=== PATIENT | male | born 1950 | race Caucasian/White ===

== ENCOUNTER 2018-05-05 09:35 | Inpatient (IN) | payer OTHER ==
[2018-04-27 15:55] LABS: BASOPHILS % (AUTO) 0.5 % (0-1); EOSINOPHILS # (AUTO) 0.1 X10'3 (0-0.9); EOSINOPHILS % (AUTO) 1.1 % (0-6); LYMPHOCYTES # (AUTO) 1.2 X10'3 (1.1-4.8); LYMPHOCYTES % (AUTO) 16.9 % (21-51); MEAN CORPUSCULAR HEMOGLOBIN 30.2 PG (27.0-31.0); MEAN CORPUSCULAR HGB CONC 33.7 % (33.0-36.5); MEAN CORPUSCULAR VOLUME 89.7 FL (78-98); MEAN PLATELET VOLUME 7.9 FL (7.4-10.4); MONOCYTES # (AUTO) 0.7 X10'3 (0-0.9); MONOCYTES % (AUTO) 9.1 % (2-12); NEUTROPHILS # (AUTO) 5.4 X10'3 (1.8-7.7); NEUTROPHILS % (AUTO) 72.4 % (42-75); PRE OP HEMATOCRIT 43.5 % (42.0-52.0); PRE OP HEMOGLOBIN 14.6 g/dL (14.0-17.9); PRE OP PLATELET COUNT 194 X10'3 (140-440); RED BLOOD COUNT 4.85 X10'6 (4.70-6.10); RED CELL DISTRIBUTION WIDTH 12.6 % (11.5-14.5)
[2018-04-27 16:02] LABS: ALBUMIN 3.6 G/DL (3.4-5.0); ALKALINE PHOSPHATASE 92 IU/L (46-116); BLOOD UREA NITROGEN 19 MG/DL (7-18); BUN/CREATININE RATIO 20.7 (5.4-32.0); CALCIUM 8.6 MG/DL (8.5-10.1); CHLORIDE 105 MMOL/L (99-107); CREATININE 0.92 MG/DL (0.60-1.10); PRE OP ALT 37 U/L (30-65); PRE OP ANION GAP 9 (8-16); PRE OP AST 27 U/L (10-37); PRE OP BILIRUB, TOTAL 0.5 MG/DL (0.0-1.0); PRE OP GLUCOSE 118 MG/DL (70-104); PRE OP SODIUM 141 MMOL/L (135-145); TOTAL CARBON DIOXIDE 27.2 MMOL/L (24-32); TOTAL PROTEIN 7.2 G/DL (6.4-8.2); eGFR 82 ML/MIN
[2018-04-27 16:15] LABS: HEMOGLOBIN A1C 6.3 % (4.5-6.2)
[~2018-05-05] VITALS: Ht 177.8 cm; Wt 106.1 kg
[2018-05-05] VITALS (18 sets, daily range): BP systolic 97–130; BP diastolic 43–87
[~2018-05-05 09:35] MED LIST: ASPI-1265 PO; CHOL100046 PO; DOCUMENT DATE & TIME OF BETA-BLOCKER PO ONE; FAMC500T3 PO; FLO0.4C PO; GABA-530 PO; METF-950 PO; METO50TA7 PO; OMEG1CAP2 PO; PANT40TA4 PO; PRED2.5T4 PO; ROSU40TA21 PO; TOCI162S SQ; acetaminophen 325mg tablet PO ONE; cefazolin/dext.iso 2gm/100 ML IV ONE; famotidine 20mg tablet PO ONE; gabapentin 300mg capsule PO ONE; metoclopramide 5 mg/ml inj IV ONE; oxyCODONE SR 10mg (sust. release) tab -2 tabs (20mg) PO ONE; ringers solution, lacted 1,000 ML IV SCH; tranexamic acid inj. 1,000 MG in normal saline 100ml IV soln 90 ML IV ONE; turmeric PO; vancomycin inj 1,500 MG in normal saline 300ml IV soln IV ONE
[2018-05-05] MEDS ORDERED: vancomycin 1,000mg inj ONE (11:07)
[2018-05-05] MEDS ORDERED: ceFAZolin 1000mg inj ONE ×2 (11:08→16:38)
[2018-05-05] MEDS ORDERED: GABA-530 PO (11:27)
[2018-05-05] MEDS ORDERED: FAMC500T18 PO (11:35)
[2018-05-05] MEDS ORDERED: fentaNYL/PF 50MCG/1 ML 2ML syringe ONE (12:24)
[2018-05-05] MEDS ORDERED: MIDAZolam 5mg/5ml vial ONE (12:24)
[2018-05-05] MEDS ORDERED: morphine /PF 1mg/ml 10ml inj. ONE (12:24)
[2018-05-05] MEDS ORDERED: ROPIVAcaine inj 200 MG, ketorolac trometh inj. 15 MG, epiNEPHrine inj 0.6 MG, morphine ... IU ONE ×5 (12:30)
[2018-05-05] MEDS ORDERED: tetracaine 1% (10mg/ml) pres. free inj. ONE (13:14)
[2018-05-05] MEDS ORDERED: cloNIDine hcl/PF 100mcg/ml inj ONE (13:17)
[2018-05-05] MEDS ORDERED: glycopyrrolate 0.2mg/ml inj ONE (13:17)
[2018-05-05] MEDS ORDERED: meperidine/PF 50mg/ml syringe ONE (13:41)
[2018-05-05] MEDS ORDERED: morphine 4 MG/ML inj SYRINge IV PRN ×2 (14:15)
[2018-05-05] MEDS ORDERED: meperidine/PF 25mg/ml syringe IV PRN ×3 (14:15)
[2018-05-05] MEDS ORDERED: ondansetron/PF 4mg/2ml inj IV PRN ×3 (14:15→17:10)
[2018-05-05] MEDS ORDERED: diphenhydrAMINE 50 mg/ml inj IV PRN (14:15)
[2018-05-05] MEDS ORDERED: proCHLORperazine 10 MG/2 ml inj IV PRN (14:15)
[2018-05-05] MEDS ORDERED: naloxone 2mg/2ml inj 2 MG in normal saline 500ml IV soln 500 ML IV PRN (14:15)
[2018-05-05] MEDS ORDERED: ringers solution, lacted 1,000 ML IV SCH (14:15)
[2018-05-05] MEDS ORDERED: ondansetron/PF 4mg/2ml inj ONE (16:53)
[2018-05-05] MEDS ORDERED: acetaminophen 325mg tablet PO PRN (17:10)
[2018-05-05] MEDS ORDERED: magnesium hydroxide 30ml (MOM) UD suspension PO PRN (17:10)
[2018-05-05] MEDS ORDERED: bisacodyl 10mg suppository rectal RC PRN (17:10)
[2018-05-05] MEDS ORDERED: diphenhydrAMINE 25mg capsule PO PRN ×2 (17:10)
[2018-05-05] MEDS ORDERED: HYDROmorphone 1 mg/ml syringe IV PRN ×2 (17:10)
[2018-05-05 17:46] LABS: ISTAT ANION GAP 14 (8-12); ISTAT BUN 13 mg/dL (6-19); ISTAT CL 100 mmol/L (99-107); ISTAT CREATININE 0.7 mg/dL (0.8-1.3); ISTAT GLUCOSE 128 mg/dL (70-104); ISTAT HGB 11.9 g/dl (14.0-18.0); ISTAT Hct 35 %PCV (42-52); ISTAT IONIZED CALCIUM 1.13 mmol/L (1.03-1.32); ISTAT K 3.7 mmol/L (3.5-5.1); ISTAT NA 139 mmol/L (135-145); ISTAT TOTAL CO2 25 mmol/L (24-32); ISTAT eGFR > 90 ML/MIN; POC BUN/CREATININE RATIO 18.6 (5.4-32.0)
[2018-05-05] MEDS ORDERED: vancomycin/NS 1 GM ADD-VANTAGE 250 ML IV SCH (20:00)
[2018-05-05] MEDS ORDERED: gabapentin 300mg capsule PO SCH (21:00)
[2018-05-05] MEDS: sennosides 8.6mg tablet PO SCH (21:44)
[2018-05-05] MEDS: gabapentin 100mg capsule PO SCH (21:44)
[2018-05-05] MEDS: tamsulosin 0.4mg capsule PO SCH (21:44)
[2018-05-05] MEDS: OMEGA-3/DHA/EPA/FISH OIL 1 EACH CAPSULE.DR PO SCH (21:45)
[2018-05-05] MEDS: acetaminophen 325mg tablet PO SCH (21:45)
[2018-05-05] MEDS ORDERED: tranexamic acid inj. 1,000 MG in normal saline 100ml IV soln 100 ML IV ONE (22:00)
[2018-05-05] MEDS ORDERED: TOCILIZUMAB SQ SCH (22:40)
[2018-05-06] MEDS: ceFAZolin 1GM/D5W- ADD-VANTAGE 50 ML IV SCH ×2 (00:06→07:45)
[2018-05-06] MEDS: potassium cl 20mEq in 1/2 NS 1,000 ML IV SCH ×4 (00:08→17:08)
[2018-05-06] MEDS: metoprolol succinate 25mg (24-HOUR) SR. Tablet PO SCH ×2 (00:19→21:18)
[2018-05-06] MEDS: aspirin 81mg tab.chew PO SCH ×2 (00:54→21:17)
[2018-05-06] MEDS: metFORMIN 500mg tablet PO SCH ×3 (00:54→17:44)
[2018-05-06] MEDS: atorvastatin 20mg tablet PO SCH ×2 (00:56→21:17)
[2018-05-06] MEDS: acetaminophen 325mg tablet PO SCH ×4 (02:00→19:49)
[2018-05-06 06:00] VITALS: BP 93/58
[2018-05-06 06:14] LABS: BASOPHILS % (AUTO) 0.3 % (0-1); EOSINOPHILS # (AUTO) 0.1 X10'3 (0-0.9); EOSINOPHILS % (AUTO) 1.6 % (0-6); HEMATOCRIT 32.3 % (42.0-52.0); HEMOGLOBIN 10.8 g/dl (14.0-17.9); LYMPHOCYTES # (AUTO) 1.2 X10'3 (1.1-4.8); LYMPHOCYTES % (AUTO) 19.7 % (21-51); MEAN CORPUSCULAR HEMOGLOBIN 30.1 PG (27.0-31.0); MEAN CORPUSCULAR HGB CONC 33.5 % (33.0-36.5); MEAN CORPUSCULAR VOLUME 90.1 FL (78-98); MEAN PLATELET VOLUME 7.7 FL (7.4-10.4); MONOCYTES # (AUTO) 0.9 X10'3 (0-0.9); MONOCYTES % (AUTO) 14.9 % (2-12); NEUTROPHILS # (AUTO) 3.9 X10'3 (1.8-7.7); NEUTROPHILS % (AUTO) 63.5 % (42-75); PLATELET COUNT 156 X10'3 (140-440); RED BLOOD COUNT 3.59 X10'6 (4.70-6.10); RED CELL DISTRIBUTION WIDTH 13.5 % (11.5-14.5); WHITE BLOOD COUNT 6.2 X10'3 (4.5-11.0)
[2018-05-06 06:19] LABS: ANION GAP 7 (8-16); CHLORIDE 103 MMOL/L (99-107); POTASSIUM 3.6 MMOL/L (3.5-5.1); SODIUM 138 MMOL/L (135-145); TOTAL CARBON DIOXIDE 27.8 MMOL/L (24-32)
[2018-05-06 07:01] VITALS: BP 111/69
[2018-05-06] MEDS: gabapentin 100mg capsule PO SCH ×2 (07:45→19:49)
[2018-05-06] MEDS: oxyCODONE IR 5mg (immed. release) tablet PO PRN ×4 (07:45→21:19)
[2018-05-06] MEDS: enoxaparin 40mg/0.4ml syringe SQ SCH (07:45)
[2018-05-06] MEDS: pantoprazole 40mg Tablet.DR PO SCH (07:45)
[2018-05-06] MEDS: vitamin D (cholecalciferol) 1,000 unit tablet PO SCH (07:45)
[2018-05-06] MEDS: predniSONE 5mg tablet PO SCH (07:45)
[2018-05-06] MEDS ORDERED: gabapentin 100mg capsule PO SCH (08:00)
[2018-05-06] MEDS ORDERED: TURMERIC 1000 MG PO SCH (08:00)
[2018-05-06] MEDS ORDERED: non-formulary drug (Rosuvastatin Calcium 1 TAB) PO SCH (08:00)
[2018-05-06] MEDS ORDERED: metFORMIN 500mg tablet PO SCH (08:00)
[2018-05-06] MEDS ORDERED: aspirin 81mg tab.chew PO SCH (08:00)
[2018-05-06] MEDS ORDERED: vitamin D (cholecalciferol) 1,000 unit tablet PO SCH (08:00)
[2018-05-06] MEDS ORDERED: FAMCICLOVIR PO SCH (08:00)
[2018-05-06] MEDS ORDERED: PREDNISONE 7.5 MG PO SCH (08:00)
[2018-05-06] MEDS ORDERED: non-formulary drug (Omega-3 Fatty Acids/Fish Oil (Fish Oil 1,000 mg Capsule) 1 CAP) PO SCH (08:00)
[2018-05-06] MEDS ORDERED: non-formulary drug (Metoprolol Succinate* (Toprol Xl*) 1 TAB) PO SCH (08:00)
[2018-05-06] MEDS ORDERED: tamsulosin 0.4mg capsule PO SCH (08:00)
[2018-05-06] MEDS ORDERED: pantoprazole 40mg Tablet.DR PO SCH (08:00)
[2018-05-06 10:00] VITALS: BP 105/52
[2018-05-06] MEDS: [UNRECOGNIZED DRUG - REMARK] PO NR (10:00)
[2018-05-06] MEDS: OMEGA-3/DHA/EPA/FISH OIL 1 EACH CAPSULE.DR PO SCH ×2 (10:13→19:49)
[2018-05-06 17:00] VITALS: BP 120/58
[2018-05-06] MEDS: celeCOXIB 100mg capsule PO SCH (19:49)
[2018-05-06] MEDS: tamsulosin 0.4mg capsule PO SCH (21:15)
[2018-05-06] MEDS: sennosides 8.6mg tablet PO SCH (21:17)
[2018-05-06 21:20] VITALS: BP 115/57
[2018-05-06 22:00] VITALS: BP 137/46
[2018-05-07] MEDS: acetaminophen 325mg tablet PO SCH ×3 (02:48→14:15)
[2018-05-07] MEDS: oxyCODONE IR 5mg (immed. release) tablet PO PRN ×3 (05:19→14:15)
[2018-05-07 06:00] VITALS: BP 121/54
[2018-05-07] MEDS: pantoprazole 40mg Tablet.DR PO SCH (07:43)
[2018-05-07] MEDS: metFORMIN 500mg tablet PO SCH ×2 (07:43→17:34)
[2018-05-07] MEDS: celeCOXIB 100mg capsule PO SCH ×2 (07:43→20:23)
[2018-05-07] MEDS: OMEGA-3/DHA/EPA/FISH OIL 1 EACH CAPSULE.DR PO SCH ×2 (07:43→20:23)
[2018-05-07] MEDS: gabapentin 100mg capsule PO SCH ×2 (07:44→20:23)
[2018-05-07] MEDS: predniSONE 5mg tablet PO SCH (07:44)
[2018-05-07] MEDS: vitamin D (cholecalciferol) 1,000 unit tablet PO SCH (07:45)
[2018-05-07] MEDS: enoxaparin 40mg/0.4ml syringe SQ SCH (07:45)
[2018-05-07] MEDS: aspirin 81mg tab.chew PO SCH (07:45)
[2018-05-07 08:36] LABS: BASOPHILS # (AUTO) 0.1 X10'3 (0-0.2); BASOPHILS % (AUTO) 0.9 % (0-1); EOSINOPHILS # (AUTO) 0.1 X10'3 (0-0.9); EOSINOPHILS % (AUTO) 1.2 % (0-6); HEMATOCRIT 34.5 % (42.0-52.0); HEMOGLOBIN 11.5 g/dl (14.0-17.9); LYMPHOCYTES # (AUTO) 1.3 X10'3 (1.1-4.8); LYMPHOCYTES % (AUTO) 15.1 % (21-51); MEAN CORPUSCULAR HEMOGLOBIN 30.2 PG (27.0-31.0); MEAN CORPUSCULAR HGB CONC 33.2 % (33.0-36.5); MEAN CORPUSCULAR VOLUME 90.9 FL (78-98); MEAN PLATELET VOLUME 7.7 FL (7.4-10.4); MONOCYTES # (AUTO) 1.1 X10'3 (0-0.9); MONOCYTES % (AUTO) 13.1 % (2-12); NEUTROPHILS # (AUTO) 5.8 X10'3 (1.8-7.7); NEUTROPHILS % (AUTO) 69.7 % (42-75); PLATELET COUNT 181 X10'3 (140-440); RED CELL DISTRIBUTION WIDTH 13.5 % (11.5-14.5); WHITE BLOOD COUNT 8.3 X10'3 (4.5-11.0)
[2018-05-07 10:00] VITALS: BP 114/54
[2018-05-07] MEDS: [UNRECOGNIZED DRUG - REMARK] PO NR (10:00)
[2018-05-07] MEDS ORDERED: acetaminophen 325mg tablet PO PRN (17:10)
[2018-05-07 18:00] VITALS: BP 114/57
[2018-05-07] MEDS: sennosides 8.6mg tablet PO SCH (20:23)
[2018-05-07] MEDS: metoprolol succinate 25mg (24-HOUR) SR. Tablet PO SCH (20:23)
[2018-05-07] MEDS: atorvastatin 20mg tablet PO SCH (20:23)
[2018-05-07] MEDS: tamsulosin 0.4mg capsule PO SCH (20:23)
[2018-05-07 22:00] VITALS: BP 121/60
[2018-05-08] MEDS: oxyCODONE IR 5mg (immed. release) tablet PO PRN ×2 (05:24→09:52)
[2018-05-08 06:00] VITALS: BP 118/50
[2018-05-08 06:33] LABS: BASOPHILS % (AUTO) 0.2 % (0-1); EOSINOPHILS # (AUTO) 0.2 X10'3 (0-0.9); EOSINOPHILS % (AUTO) 2.3 % (0-6); HEMATOCRIT 32.8 % (42.0-52.0); LYMPHOCYTES # (AUTO) 1.5 X10'3 (1.1-4.8); LYMPHOCYTES % (AUTO) 19.2 % (21-51); MEAN CORPUSCULAR HEMOGLOBIN 30.1 PG (27.0-31.0); MEAN CORPUSCULAR HGB CONC 33.5 % (33.0-36.5); MEAN CORPUSCULAR VOLUME 89.9 FL (78-98); MONOCYTES # (AUTO) 1.1 X10'3 (0-0.9); MONOCYTES % (AUTO) 14.4 % (2-12); NEUTROPHILS # (AUTO) 4.9 X10'3 (1.8-7.7); NEUTROPHILS % (AUTO) 63.9 % (42-75); PLATELET COUNT 183 X10'3 (140-440); RED BLOOD COUNT 3.65 X10'6 (4.70-6.10); RED CELL DISTRIBUTION WIDTH 13.8 % (11.5-14.5); WHITE BLOOD COUNT 7.6 X10'3 (4.5-11.0)
[2018-05-08] MEDS: celeCOXIB 100mg capsule PO SCH (08:20)
[2018-05-08] MEDS: metFORMIN 500mg tablet PO SCH (08:20)
[2018-05-08] MEDS: OMEGA-3/DHA/EPA/FISH OIL 1 EACH CAPSULE.DR PO SCH (08:20)
[2018-05-08] MEDS: pantoprazole 40mg Tablet.DR PO SCH (08:20)
[2018-05-08] MEDS: gabapentin 100mg capsule PO SCH (08:20)
[2018-05-08] MEDS: predniSONE 5mg tablet PO SCH (08:20)
[2018-05-08] MEDS: enoxaparin 40mg/0.4ml syringe SQ SCH (08:20)
[2018-05-08] MEDS: vitamin D (cholecalciferol) 1,000 unit tablet PO SCH (08:21)
[2018-05-08 10:00] VITALS: BP 109/55
[2018-05-08] MEDS: [UNRECOGNIZED DRUG - REMARK] PO NR (10:32)
[2018-05-12] MEDS ORDERED: TOCILIZUMAB 162 MG/0.9 ML SQ SCH (08:00)
== END 2018-05-08 11:50 | disposition home or self-care (01) | DRG 470 ==
LOC: PAS IN 09:35 → EDSTATUS 15:15 → ORTHO 4S 19:11
PROVIDERS: ADMIT Orthopaedic Surgery; ATTEND Orthopaedic Surgery
PROC: 8E0Y0CZ Robotic Assisted Procedure of Lower Extremity, Open Approach (ICD-10-PCS; 2018-05-05)
PROC: 0SRC069 Replacement of Right Knee Joint with Oxidized Zirconium on Polyethylene Synthetic Substitute, Cemented, Open Approach (ICD-10-PCS; principal; 2018-05-05 13:07)
PROC: 5A09357 Assistance with Respiratory Ventilation, Less than 24 Consecutive Hours, Continuous Positive Airway Pressure (ICD-10-PCS; 2018-05-06)
PROC: 5A09357 Assistance with Respiratory Ventilation, Less than 24 Consecutive Hours, Continuous Positive Airway Pressure (ICD-10-PCS; 2018-05-07)
DX: M17.11 Unilateral primary osteoarthritis, right knee (principal); D62 Acute posthemorrhagic anemia; E11.9 Type 2 diabetes mellitus without complications; E78.5 Hyperlipidemia, unspecified; G47.30 Sleep apnea, unspecified; I10 Essential (primary) hypertension; K21.9 Gastro-esophageal reflux disease without esophagitis; N40.0 Benign prostatic hyperplasia without lower urinary tract symptoms; I25.2 Old myocardial infarction; Z88.8 Allergy status to other drugs, medicaments and biological substances
CPT/HCPCS: 36415; 80047; 80051; 80053; 82948; 83036; 85025; 87070; 97110; 97116; 97161; 97530; A6455; A7000; C1713; C1758; C1776; J0690; J0735; J1650; J2175; J2250; J2274; J2405; J2765; J2795; J3010; J3370; J3490; J7030; J7120; J7512

== ENCOUNTER 2019-03-09 05:38 | Inpatient (IN) | payer MEDICARE, BC ==
[2019-03-01 16:11] LABS: BASOPHILS % (AUTO) 0.5 % (0-1); EOSINOPHILS # (AUTO) 0.1 X10'3 (0-0.9); EOSINOPHILS % (AUTO) 1.5 % (0-6); LYMPHOCYTES # (AUTO) 2.2 X10'3 (1.1-4.8); LYMPHOCYTES % (AUTO) 29.8 % (21-51); MEAN CORPUSCULAR HEMOGLOBIN 30.2 PG (27.0-31.0); MEAN CORPUSCULAR HGB CONC 33.9 g/dL (33.0-36.5); MEAN CORPUSCULAR VOLUME 89.2 FL (78-98); MEAN PLATELET VOLUME 7.3 FL (7.4-10.4); MONOCYTES % (AUTO) 13.3 % (2-12); NEUTROPHILS % (AUTO) 54.9 % (42-75); PRE OP HEMATOCRIT 44.5 % (42.0-52.0); PRE OP HEMOGLOBIN 15.1 g/dL (14.0-17.9); PRE OP PLATELET COUNT 204 X10'3 (140-440); RED BLOOD COUNT 4.98 X10'6 (4.70-6.10); RED CELL DISTRIBUTION WIDTH 14.4 % (11.5-14.5)
[2019-03-01 16:26] LABS: ALBUMIN 3.9 G/DL (3.4-5.0); ALKALINE PHOSPHATASE 86 IU/L (46-116); BLOOD UREA NITROGEN 23 MG/DL (7-18); BUN/CREATININE RATIO 22.3 (5.4-32.0); CALCIUM 9.1 MG/DL (8.5-10.1); CHLORIDE 105 MMOL/L (99-107); CREATININE 1.03 MG/DL (0.60-1.10); PRE OP ALT 33 U/L (30-65); PRE OP ANION GAP 7 (8-16); PRE OP AST 26 U/L (10-37); PRE OP BILIRUB, TOTAL 0.7 MG/DL (0.0-1.0); PRE OP GLUCOSE 102 MG/DL (70-104); PRE OP SODIUM 140 MMOL/L (135-145); TOTAL CARBON DIOXIDE 27.8 MMOL/L (24-32); TOTAL PROTEIN 7.8 G/DL (6.4-8.2); eGFR 72 ML/MIN
[~2019-03-09] VITALS: Ht 185.4 cm; Wt 104.0 kg
[2019-03-09] VITALS (18 sets, daily range): BP systolic 101–130; BP diastolic 52–71
[~2019-03-09 05:38] MED LIST changes: +ABAT125S SQ; +FAMC500T18 PO; -FAMC500T3 PO; -PRED2.5T4 PO; +PRED5TAB PO; -ROSU40TA21 PO; +ROSU40TA22 PO; -TOCI162S SQ; +TRAM50TA2 PO; +TUMERIC PO; +UBID100C16 PO; +tranexamic acid inj. 1,000 MG in normal saline 100 ML IV ONE; -tranexamic acid inj. 1,000 MG in normal saline 100ml IV soln 90 ML IV ONE; -turmeric PO
[2019-03-09] MEDS ORDERED: Thrombin (Bovine) 5,000 unit vial TP ONE (06:52)
[2019-03-09] MEDS ORDERED: ketorolac trometh. 30mg/ml inj. ONE (06:57)
[2019-03-09] MEDS ORDERED: epiNEPHrine 1 mg/ml inj ONE (06:57)
[2019-03-09] MEDS ORDERED: ROPIVAcaine 0.5% (5mg/ml) 30ml vial ONE ×3 (06:57→09:38)
[2019-03-09] MEDS ORDERED: vancomycin 1,000mg inj ONE (07:03)
[2019-03-09] MEDS ORDERED: tetracaine 1% (10mg/ml) pres. free inj. ONE (07:20)
[2019-03-09] MEDS ORDERED: morphine /PF 1mg/ml 10ml inj. ONE (07:22)
[2019-03-09] MEDS ORDERED: fentaNYL/PF 50MCG/1 ML 2ML syringe ONE (07:22)
[2019-03-09] MEDS ORDERED: MIDAZolam 5mg/5ml vial ONE (07:22)
[2019-03-09] MEDS ORDERED: morphine 10mg/ml inj. ONE (08:10)
[2019-03-09] MEDS ORDERED: ringers solution, lacted 1,000 ML IV SCH (08:27)
[2019-03-09] MEDS ORDERED: naloxone 2mg/2ml inj 2 MG in normal saline 500ml IV soln 500 ML IV PRN (08:27)
[2019-03-09] MEDS ORDERED: calcium chloride 100 MG/1 ML inj IV ONE (08:29)
[2019-03-09] MEDS ORDERED: proCHLORperazine 10 MG/2 ml inj IV PRN (08:30)
[2019-03-09] MEDS ORDERED: morphine 4 MG/ML inj SYRINge IV PRN ×2 (08:30)
[2019-03-09] MEDS ORDERED: ondansetron/PF 4mg/2ml inj IV PRN ×3 (08:30→09:35)
[2019-03-09] MEDS ORDERED: diphenhydrAMINE 50 mg/ml inj IV PRN (08:30)
[2019-03-09] MEDS ORDERED: meperidine/PF 25mg/ml syringe IV PRN ×3 (08:30)
[2019-03-09] MEDS: ceFAZolin 1000mg inj ONE ×2 (09:07→09:08)
[2019-03-09] MEDS ORDERED: LIDOcaine 1%/PF 5ML 10 MG/ML VIAL ONE (09:33)
[2019-03-09] MEDS ORDERED: propofol inj 40 ML IV ONE (09:33)
[2019-03-09] MEDS ORDERED: oxyCODONE IR 5mg (immed. release) tablet PO PRN ×2 (09:35)
[2019-03-09] MEDS ORDERED: diphenhydrAMINE 25mg capsule PO PRN ×2 (09:35)
[2019-03-09] MEDS ORDERED: acetaminophen 325mg tablet PO PRN (09:35)
[2019-03-09] MEDS ORDERED: HYDROmorphone 1 mg/ml syringe IV PRN (09:35)
[2019-03-09] MEDS ORDERED: bisacodyl 10mg suppository rectal RC PRN (09:35)
[2019-03-09] MEDS ORDERED: magnesium hydroxide 30ml (MOM) UD suspension PO PRN (09:35)
[2019-03-09] MEDS ORDERED: HYDROmorphone inj. 0.5 MG/0.5 ML DISP.SYRIN IV PRN (09:35)
--- NOTE | 2019-03-09 10:04 | NUR ---
Received from OR via BED, accompanied by Anesthesiologist DR ORTIZ and report given by Anesthesiologist. PT DROWSY, DENIES PAIN, LEFT LEG W/DRSG, LEG WRAP, CDI, ICE PACK AND SOPHY DRAIN W/GREEN LIGHT ILLUMINATION. Addendum: 03/09/19 at 1024 by Missy Roman RN Amended: Links added.
[2019-03-09] MEDS ORDERED: traMADol 50MG tablet PO PRN (10:25)
[2019-03-09] MEDS: ROPIVAcaine 0.2%/PF PAIN PUMP 550 ML IJ SCH (10:36)
--- NOTE | 2019-03-09 10:52 | NUR ---
received report from shaimr wu in recovery
--- NOTE | 2019-03-09 11:24 | NUR ---
Report called to receiving nurse. Transferred via BED, 1 BAG OF PERSONAL Belongings, CPAP SENT W/PT TO ROOM 4024B, NURSES AIDE AT BEDSIDE TO RECEIVE PT, PRESENT, CALL LIGHT GIVEN, BLL, SIDE RAILS UP X 2. Special Issues communicated to receiving nurse. YES. Addendum: 03/09/19 at 1141 by Missy Roman RN Amended: Links added.
--- NOTE | 2019-03-09 11:30 | NUR ---
pt arrived to floor awake and in ortho bed
[2019-03-09] MEDS ORDERED: ABATACEPT 125 MG PO SCH (12:05)
[2019-03-09] MEDS: gabapentin 300mg capsule PO SCH ×2 (12:45→20:25)
[2019-03-09] MEDS: gabapentin 100mg capsule PO SCH ×2 (12:45→20:26)
[2019-03-09] MEDS ORDERED: tranexamic acid inj. 1,000 MG in normal saline 100ml IV soln 100 ML IV ONE (13:00)
[2019-03-09] MEDS: acetaminophen 325mg tablet PO SCH ×2 (13:10→20:27)
--- NOTE | 2019-03-09 13:10 | NUR ---
scanner on computer not working, checked meds prior to admin, continue to monitor
[2019-03-09] MEDS: potassium cl 20mEq in 1/2 NS 1,000 ML IV SCH ×2 (15:39→17:33)
[2019-03-09] MEDS: ceFAZolin 1GM/D5W- ADD-VANTAGE 50 ML IV SCH ×2 (15:41→23:50)
--- NOTE | 2019-03-09 18:19 | NUR ---
gave report to shamir tovar
--- NOTE | 2019-03-09 18:37 | NUR ---
Patient in room ORTHO 4024. I have received report from BRENDAN Beckwith and had the opportunity to ask questions and assume patient care.
[2019-03-09] MEDS ORDERED: vancomycin/NS 1 GM ADD-VANTAGE 250 ML IV SCH (20:00)
[2019-03-09] MEDS: omega-3 acid ethyl esters 1GM capsule PO SCH (20:25)
[2019-03-09] MEDS: metFORMIN 500mg tablet PO SCH (20:40)
[2019-03-09] MEDS ORDERED: atorvastatin 20mg tablet PO SCH (21:00)
[2019-03-09] MEDS ORDERED: sennosides 8.6mg tablet PO SCH (21:00)
[2019-03-09] MEDS ORDERED: metoprolol succinate 25mg (24-HOUR) SR. Tablet PO SCH (21:00)
[2019-03-10 02:00] VITALS: BP 103/52
[2019-03-10] MEDS: potassium cl 20mEq in 1/2 NS 1,000 ML IV SCH ×2 (02:14→09:33)
[2019-03-10] MEDS: acetaminophen 325mg tablet PO SCH ×2 (02:15→09:11)
[2019-03-10] MEDS: ROPIVAcaine 0.2%/PF PAIN PUMP 550 ML IJ SCH (02:16)
[2019-03-10 06:00] VITALS: BP 107/53
--- NOTE | 2019-03-10 06:41 | NUR ---
Problems reprioritized. Patient report given, questions answered & plan of care reviewed with BRENDAN Merino.
[2019-03-10 06:44] LABS: BASOPHILS % (AUTO) 0.3 % (0-1); EOSINOPHILS # (AUTO) 0.2 X10'3 (0-0.9); EOSINOPHILS % (AUTO) 2.6 % (0-6); HEMATOCRIT 35.6 % (42.0-52.0); HEMOGLOBIN 12.1 g/dl (14.0-17.9); LYMPHOCYTES # (AUTO) 1.6 X10'3 (1.1-4.8); LYMPHOCYTES % (AUTO) 24.2 % (21-51); MEAN CORPUSCULAR HEMOGLOBIN 30.3 PG (27.0-31.0); MEAN CORPUSCULAR HGB CONC 33.9 g/dL (33.0-36.5); MEAN CORPUSCULAR VOLUME 89.4 FL (78-98); MEAN PLATELET VOLUME 7.1 FL (7.4-10.4); MONOCYTES # (AUTO) 1.1 X10'3 (0-0.9); NEUTROPHILS # (AUTO) 3.8 X10'3 (1.8-7.7); NEUTROPHILS % (AUTO) 56.9 % (42-75); PLATELET COUNT 156 X10'3 (140-440); RED BLOOD COUNT 3.98 X10'6 (4.70-6.10); RED CELL DISTRIBUTION WIDTH 14.2 % (11.5-14.5); WHITE BLOOD COUNT 6.6 X10'3 (4.5-11.0)
[2019-03-10 06:55] LABS: ANION GAP 6 (8-16); CHLORIDE 106 MMOL/L (99-107); POTASSIUM 3.5 MMOL/L (3.5-5.1); SODIUM 140 MMOL/L (135-145); TOTAL CARBON DIOXIDE 27.8 MMOL/L (24-32)
[2019-03-10] MEDS ORDERED: enoxaparin 40mg/0.4ml syringe SQ SCH (08:00)
[2019-03-10] MEDS ORDERED: vitamin D (cholecalciferol) 1,000 unit tablet PO SCH (08:00)
[2019-03-10] MEDS ORDERED: tamsulosin 0.4mg capsule PO SCH (08:00)
[2019-03-10] MEDS ORDERED: pantoprazole 40mg Tablet.DR PO SCH (08:00)
[2019-03-10] MEDS: gabapentin 300mg capsule PO SCH ×2 (08:00→09:13)
[2019-03-10] MEDS ORDERED: predniSONE 5mg tablet PO SCH (08:00)
[2019-03-10] MEDS ORDERED: non-formulary drug (Ubidecarenone (Coq-10) 300 MG) PO SCH (08:00)
[2019-03-10 08:17] LABS: PLATELET ESTIMATE NORMAL; TOTAL CELLS COUNTED 100
[2019-03-10] MEDS ORDERED: HYDROcodone/acetaminophen 10/325mg tab PO PRN ×2 (09:10)
[2019-03-10] MEDS ORDERED: metoclopramide 5 mg/ml inj IV PRN (09:10)
[2019-03-10] MEDS: metFORMIN 500mg tablet PO SCH (09:12)
[2019-03-10] MEDS: gabapentin 100mg capsule PO SCH ×2 (09:13→13:00)
[2019-03-10] MEDS: omega-3 acid ethyl esters 1GM capsule PO SCH (09:13)
--- NOTE | 2019-03-10 09:20 | NUR ---
Pt takes gabapentin 100 mg tid at [facility]. Will confirm the extra 300 mg tid dose maria luz Mjaano
[2019-03-10 10:00] VITALS: BP 119/68
--- NOTE | 2019-03-10 10:00 | NUR ---
anti emetic was given this a.m due to nausea, late tray was ordered, will reassess intake when finished Addendum: 03/10/19 at 1118 by Kaitlin Turner RN Amended: Links added.
[2019-03-10] MEDS ORDERED: HYDR-3972 PO (10:17)
--- NOTE | 2019-03-10 11:41 | NUR ---
Joint/DM consults: A1C <7 and not appropriate for DM ed at this time. Pt s/p L knee surgery PO 100% regular dinner last night and decreased to 25% breakfast today noted to have nausea. Ensure pudding BIDBD added to meals for additional protein needs. Labs and GLU WNL on regular diet. Will continue to monitor for additional protein needs post-op. Addendum: 03/10/19 at [address] Amended: Links added.
[2019-03-10] MEDS ORDERED: celeCOXIB 100mg capsule PO SCH (20:00)
[2019-03-11] MEDS ORDERED: acetaminophen 325mg tablet PO PRN (09:35)
== END 2019-03-10 16:42 | disposition home or self-care (01) | DRG 470 ==
LOC: PAS IN 05:38 → EDSTATUS 07:30 → ORTHO 4S 11:30
PROVIDERS: ADMIT Orthopaedic Surgery; ATTEND Orthopaedic Surgery
PROC: 3E0T3BZ Introduction of Anesthetic Agent into Peripheral Nerves and Plexi, Percutaneous Approach (ICD-10-PCS; 2019-03-09)
PROC: 8E0YXCZ Robotic Assisted Procedure of Lower Extremity (ICD-10-PCS; 2019-03-09)
PROC: 5A09357 Assistance with Respiratory Ventilation, Less than 24 Consecutive Hours, Continuous Positive Airway Pressure (ICD-10-PCS; 2019-03-09)
PROC: 0SRD069 Replacement of Left Knee Joint with Oxidized Zirconium on Polyethylene Synthetic Substitute, Cemented, Open Approach (ICD-10-PCS; principal; 2019-03-09 07:23)
DX: M17.12 Unilateral primary osteoarthritis, left knee (principal); D62 Acute posthemorrhagic anemia; E11.42 Type 2 diabetes mellitus with diabetic polyneuropathy; G47.30 Sleep apnea, unspecified; I10 Essential (primary) hypertension; E78.5 Hyperlipidemia, unspecified; M06.9 Rheumatoid arthritis, unspecified; I25.10 Atherosclerotic heart disease of native coronary artery without angina pectoris; Z96.651 Presence of right artificial knee joint; Z79.84 Long term (current) use of oral hypoglycemic drugs; K21.9 Gastro-esophageal reflux disease without esophagitis; N40.0 Benign prostatic hyperplasia without lower urinary tract symptoms; Z88.8 Allergy status to other drugs, medicaments and biological substances; Z98.61 Coronary angioplasty status; Z79.899 Other long term (current) drug therapy; Z79.82 Long term (current) use of aspirin
CPT/HCPCS: 36415; 80051; 80053; 82948; 83036; 85025; 87081; 93005; 97110; 97116; 97162; 97530; A4215; A6454; A7000; C1713; C1758; C1776; G0378; J0171; J0690; J1650; J1885; J2250; J2270; J2310; J2405; J2704; J2765; J2795; J3010; J3370; J3480; J7040; J7120; J7512

== ENCOUNTER 2021-03-22 15:18 | Inpatient (IN) | payer MEDICARE, BC ==
[~2021-03-22] VITALS: Ht 182.9 cm; Wt 100.0 kg
[~2021-03-22 15:18] MED LIST changes: -DOCUMENT DATE & TIME OF BETA-BLOCKER PO ONE; -FAMC500T18 PO; +FAMC500T23 PO; +HYDR-3972 PO; -PANT40TA4 PO; +PANT40TA54 PO; -acetaminophen 325mg tablet PO ONE; -cefazolin/dext.iso 2gm/100 ML IV ONE; -famotidine 20mg tablet PO ONE; -gabapentin 300mg capsule PO ONE; -metoclopramide 5 mg/ml inj IV ONE; -oxyCODONE SR 10mg (sust. release) tab -2 tabs (20mg) PO ONE; -ringers solution, lacted 1,000 ML IV SCH; -tranexamic acid inj. 1,000 MG in normal saline 100 ML IV ONE; -vancomycin inj 1,500 MG in normal saline 300ml IV soln IV ONE
[2021-03-22] MEDS ORDERED: normal saline 1000ml 1,000 ML IV ONE (15:45)
[2021-03-22] MEDS ORDERED: acetaminophen 325mg tablet PO ONE (15:55)
--- NOTE | 2021-03-22 16:02 | NUR ---
PTS [phone]
[2021-03-22 16:17] LABS: BASOPHILS % (AUTO) 0.3 % (0-1); EOSINOPHILS % (AUTO) 0.1 % (0-6); HEMATOCRIT 40.9 % (42.0-52.0); HEMOGLOBIN 13.7 g/dl (14.0-17.9); LYMPHOCYTES # (AUTO) 0.7 X10'3 (1.1-4.8); MEAN CORPUSCULAR HEMOGLOBIN 31.9 PG (27.0-31.0); MEAN CORPUSCULAR HGB CONC 33.6 g/dL (33.0-36.5); MEAN CORPUSCULAR VOLUME 95.1 FL (78-98); MEAN PLATELET VOLUME 7.6 FL (7.4-10.4); MONOCYTES # (AUTO) 0.7 X10'3 (0-0.9); MONOCYTES % (AUTO) 13.3 % (2-12); NEUTROPHILS # (AUTO) 3.9 X10'3 (1.8-7.7); NEUTROPHILS % (AUTO) 72.3 % (42-75); PLATELET COUNT 230 X10'3 (140-440); RED CELL DISTRIBUTION WIDTH 16.1 % (11.5-14.5); WHITE BLOOD COUNT 5.3 X10'3 (4.5-11.0)
[2021-03-22 16:30] LABS: D-DIMER 1.24 MG/L FEU (0-0.50)
[2021-03-22 16:49] LABS: ALANINE AMINOTRANSFERASE 64 U/L (12-78); ALBUMIN/GLOBULIN RATIO 0.6 (1.1-1.5); ALKALINE PHOSPHATASE 108 IU/L (46-116); ANION GAP 11 (8-16); ASPARTATE AMINO TRANSFERASE 90 U/L (10-37); BILIRUBIN,TOTAL 0.7 MG/DL (0.1-1.0); BLOOD UREA NITROGEN 26 MG/DL (7-18); BUN/CREATININE RATIO 17.1 (5.4-32.0); C-REACTIVE PROTEIN 10.32 MG/DL (0.0-0.5); CALCIUM 8.2 MG/DL (8.5-10.1); CHLORIDE 101 MMOL/L (99-107); CREATININE 1.52 MG/DL (0.60-1.10); GLUCOSE 122 MG/DL (70-104); LACTATE DEHYDROGENASE 831 U/L (85-227); MAGNESIUM 2.4 MG/DL (1.5-2.4); SODIUM 136 MMOL/L (135-145); TOTAL CARBON DIOXIDE 24.3 MMOL/L (24-32); TOTAL PROTEIN 7.9 G/DL (6.4-8.2); eGFR 46 ML/MIN
[2021-03-22] MEDS ORDERED: REMDESIVIR INJ 200 MG in normal saline 100ml IV soln 60 ML IV ONE (17:40)
[2021-03-22] MEDS ORDERED: methylPREDNISolone sod succ 125mg/2ml vial IV ONE (17:45)
[2021-03-22] MEDS ORDERED: TRAM50TA2 PO (18:10)
[2021-03-22] MEDS ORDERED: FLUT1DIS INH (18:10)
[2021-03-22] MEDS ORDERED: GABA300C PO (18:10)
[2021-03-22] MEDS ORDERED: FOLI0.4T14 PO (18:10)
[2021-03-22] MEDS ORDERED: TURM500C4 PO (18:10)
[2021-03-22] MEDS ORDERED: CYAN-51 PO (18:10)
[2021-03-22] MEDS ORDERED: BARI2TAB PO (18:10)
[2021-03-22] MEDS ORDERED: SILD100T PO (18:10)
[2021-03-22] MEDS ORDERED: FURO-150 PO (18:10)
[2021-03-22] MEDS ORDERED: METH2.5T PO (18:10)
[2021-03-22] MEDS ORDERED: CETI10TA15 PO (18:10)
[2021-03-22] MEDS ORDERED: POTA20TA19 PO (18:10)
[2021-03-22] MEDS ORDERED: ASPI-611 PO (18:10)
[2021-03-22] MEDS ORDERED: acetaminophen 325mg tablet PO PRN (20:40)
[2021-03-22] MEDS ORDERED: ondansetron/PF 4mg/2ml inj IV PRN (20:40)
[2021-03-22] MEDS: normal saline 1000ml 1,000 ML IV SCH (20:58)
[2021-03-22] MEDS: enoxaparin 40mg/0.4ml syringe SUBCUT SCH (20:58)
[2021-03-22] MEDS ORDERED: temazepam 15mg capsule PO PRN (21:00)
--- NOTE | 2021-03-22 21:48 | NUR ---
Patient in room ED 6. I have received report from ROSA MARIA CARDONA in ER and had the opportunity to ask questions and will assume patient care. Patient not yet on the unit.
[2021-03-22 22:00] VITALS: BP 124/83
[2021-03-23] MEDS: methylPREDNISolone sod succ/PF 40mg inj. IV SCH ×3 (00:43→16:02)
[2021-03-23 02:00] VITALS: BP 130/73
[2021-03-23] MEDS: normal saline 1000ml 1,000 ML IV SCH ×2 (05:25→16:03)
--- NOTE | 2021-03-23 06:38 | NUR ---
Problems reprioritized. Patient report given, questions answered & plan of care reviewed with TRACE CARDONA.
[2021-03-23] MEDS ORDERED: REMDESIVIR INJ 100 MG in normal saline 100ml IV soln 80 ML IV SCH (08:00)
[2021-03-23 08:48] LABS: ALBUMIN 2.4 G/DL (3.4-5.0); ANION GAP 10 (8-16); BLOOD UREA NITROGEN 23 MG/DL (7-18); BUN/CREATININE RATIO 24.2 (5.4-32.0); CALCIUM 7.8 MG/DL (8.5-10.1); CHLORIDE 105 MMOL/L (99-107); CREATININE 0.95 MG/DL (0.60-1.10); GLUCOSE 162 MG/DL (70-104); POTASSIUM 3.8 MMOL/L (3.5-5.1); SODIUM 139 MMOL/L (135-145); TOTAL CARBON DIOXIDE 23.7 MMOL/L (24-32); eGFR 79 ML/MIN
[2021-03-23 08:49] LABS: BASOPHILS % (AUTO) 0.3 % (0-1); EOSINOPHILS % (AUTO) 0 % (0-6); HEMATOCRIT 37.6 % (42.0-52.0); HEMOGLOBIN 12.7 g/dl (14.0-17.9); LYMPHOCYTES # (AUTO) 0.5 X10'3 (1.1-4.8); LYMPHOCYTES % (AUTO) 11.8 % (21-51); MEAN CORPUSCULAR HEMOGLOBIN 32.1 PG (27.0-31.0); MEAN CORPUSCULAR HGB CONC 33.7 g/dL (33.0-36.5); MEAN CORPUSCULAR VOLUME 95.1 FL (78-98); MEAN PLATELET VOLUME 7.9 FL (7.4-10.4); MONOCYTES # (AUTO) 0.4 X10'3 (0-0.9); NEUTROPHILS # (AUTO) 3.1 X10'3 (1.8-7.7); NEUTROPHILS % (AUTO) 77.9 % (42-75); PLATELET COUNT 231 X10'3 (140-440); RED BLOOD COUNT 3.95 X10'6 (4.70-6.10); RED CELL DISTRIBUTION WIDTH 15.7 % (11.5-14.5); WHITE BLOOD COUNT 3.9 X10'3 (4.5-11.0)
[2021-03-23 09:42] LABS: HEMOGLOBIN A1C 6.9 % (4.5-6.2)
[2021-03-23] MEDS: enoxaparin 40mg/0.4ml syringe SUBCUT SCH (09:48)
[2021-03-23 10:37] VITALS: BP 124/23
[2021-03-23] MEDS ORDERED: cetirizine 10mg tablet PO PRN (11:10)
[2021-03-23] MEDS ORDERED: non-formulary drug (Sildenafil Citrate* (Viagra*) 1 TAB) PO SCH (11:10)
[2021-03-23] MEDS: REMDESIVIR INJ 100 MG in normal saline 100ml IV soln 80 ML IV SCH (11:22)
[2021-03-23] MEDS ORDERED: albuterol 2.5 MG/3 ML nebule NEB PRN (11:40)
[2021-03-23 14:00] VITALS: BP 125/67
[2021-03-23] MEDS: traMADol 50MG tablet PO PRN (17:38)
--- NOTE | 2021-03-23 18:46 | NUR ---
Problems reprioritized. Patient report given, questions answered & plan of care reviewed with BRENDAN Emerson.
[2021-03-23 19:00] VITALS: BP 123/61
[2021-03-23] MEDS ORDERED: non-formulary drug (Turmeric/Turmeric Root Extract (Turmeric 500 mg Capsule) 1 CAP) PO SCH (20:00)
[2021-03-23] MEDS: budesonide 0.5mg/2ml UD nebule IH SCH (20:00)
[2021-03-23] MEDS: aspirin 81mg, enteric-coated 1 TAB TABLET.DR PO SCH (20:10)
[2021-03-23] MEDS: gabapentin 300mg capsule PO SCH (20:10)
[2021-03-23] MEDS: acyclovir 200 MG capsule PO SCH (20:11)
[2021-03-23] MEDS: metoprolol succinate 25mg (24-HOUR) SR. Tablet PO SCH (20:11)
[2021-03-23] MEDS: atorvastatin 20mg tablet PO SCH (20:12)
[2021-03-23] MEDS: BARICITINIB 2 MG PO SCH (21:00)
[2021-03-23 23:00] VITALS: BP 131/82
[2021-03-24] MEDS: methylPREDNISolone sod succ/PF 40mg inj. IV SCH ×4 (00:43→23:57)
[2021-03-24] MEDS: normal saline 1000ml 1,000 ML IV SCH ×3 (00:46→22:00)
[2021-03-24] MEDS: traMADol 50MG tablet PO PRN ×2 (00:50→21:09)
--- NOTE | 2021-03-24 06:36 | NUR ---
Problems reprioritized. Patient report given, questions answered & plan of care reviewed with
--- NOTE | 2021-03-24 06:42 | NUR ---
Patient in room COVID 04. I have received report from willem barksdale and had the opportunity to ask questions and assume patient care.
[2021-03-24 07:00] VITALS: BP 129/76
[2021-03-24] MEDS ORDERED: non-formulary drug (Ubidecarenone (Coq-10) 300 MG) PO SCH (08:00)
[2021-03-24] MEDS: REMDESIVIR INJ 100 MG in normal saline 100ml IV soln 80 ML IV SCH (08:36)
[2021-03-24] MEDS: tamsulosin 0.4mg capsule PO SCH (08:40)
[2021-03-24] MEDS: cholecalciferol (vitamin D3) 1,000 unit (25mcg) tablet PO SCH (08:42)
[2021-03-24] MEDS: gabapentin 300mg capsule PO SCH ×2 (08:42→21:05)
[2021-03-24] MEDS: folic acid 1mg tablet PO SCH (08:42)
[2021-03-24] MEDS: pantoprazole 40mg Tablet.DR PO SCH (08:42)
[2021-03-24] MEDS: enoxaparin 40mg/0.4ml syringe SUBCUT SCH (08:43)
[2021-03-24] MEDS: potassium chloride 10mEq ER tablet PO SCH (08:49)
[2021-03-24] MEDS: furosemide 20MG tablet PO SCH (08:49)
[2021-03-24] MEDS: cyanocobalamin 500mcg tablet PO SCH (08:50)
[2021-03-24 09:46] LABS: ALBUMIN 2.5 G/DL (3.4-5.0); ANION GAP 15 (8-16); BLOOD UREA NITROGEN 21 MG/DL (7-18); BUN/CREATININE RATIO 19.1 (5.4-32.0); CALCIUM 7.5 MG/DL (8.5-10.1); CHLORIDE 104 MMOL/L (99-107); GLUCOSE 166 MG/DL (70-104); POTASSIUM 3.2 MMOL/L (3.5-5.1); SODIUM 139 MMOL/L (135-145); TOTAL CARBON DIOXIDE 20.4 MMOL/L (24-32); eGFR 66 ML/MIN
[2021-03-24] MEDS: budesonide 0.5mg/2ml UD nebule IH SCH ×2 (09:50→20:00)
[2021-03-24 09:54] LABS: BASOPHILS % (AUTO) 0.1 % (0-1); EOSINOPHILS % (AUTO) 0 % (0-6); HEMATOCRIT 38.5 % (42.0-52.0); HEMOGLOBIN 12.9 g/dl (14.0-17.9); LYMPHOCYTES # (AUTO) 0.7 X10'3 (1.1-4.8); LYMPHOCYTES % (AUTO) 6.7 % (21-51); MEAN CORPUSCULAR HGB CONC 33.5 g/dL (33.0-36.5); MEAN CORPUSCULAR VOLUME 95.6 FL (78-98); MEAN PLATELET VOLUME 7.9 FL (7.4-10.4); MONOCYTES # (AUTO) 0.8 X10'3 (0-0.9); MONOCYTES % (AUTO) 8.3 % (2-12); NEUTROPHILS # (AUTO) 8.5 X10'3 (1.8-7.7); NEUTROPHILS % (AUTO) 84.9 % (42-75); PLATELET COUNT 340 X10'3 (140-440); RED BLOOD COUNT 4.02 X10'6 (4.70-6.10)
[2021-03-24 10:00] VITALS: BP 124/70
[2021-03-24] MEDS ORDERED: albuterol 60 PUFF/8GM Inhaler IH PRN (17:10)
[2021-03-24] MEDS ORDERED: magnesium Cl slow-release 64mg tablet PO PRN (18:00)
[2021-03-24] MEDS ORDERED: potassium Cl 20 mEq SR tablet PO PRN (18:00)
[2021-03-24] MEDS ORDERED: potassium Cl 40MEQ/1/2NS 520ml 520 ML IV PRN (18:00)
[2021-03-24] MEDS ORDERED: magnesium 4gm in 100ml NS 100 ML IV PRN (18:00)
[2021-03-24] MEDS: potassium Cl 20 mEq SR tablet PO PRN (18:13)
--- NOTE | 2021-03-24 18:30 | NUR ---
Patient in room COVID 04. I have received report from RUBIO and had the opportunity to ask questions and assume patient care.
--- NOTE | 2021-03-24 18:43 | NUR ---
Patient found to be sitting on toilet had unhooked IV and oxygen, had a large amount of diarrhoea.stated he woke up and felt tied down and had to get to bathroom. Patient helped to be cleaned up and back to bed. appeared to be alert and orientated following this. . Daughter called to ask for patient to have cpap at night and that family would bring it in. Also requested ABG done. call made to Dr Santiago who Ok ABG and cpap. Rt paged evaluated patient and deemed ABG not necessary. patient continues on 6L o2 sats 93% does not appear to be in distress. report given to willem CARDONA
[2021-03-24] MEDS: BARICITINIB 2 MG PO SCH (21:00)
[2021-03-24] MEDS: atorvastatin 20mg tablet PO SCH (21:05)
[2021-03-24] MEDS: aspirin 81mg, enteric-coated 1 TAB TABLET.DR PO SCH (21:05)
[2021-03-24] MEDS: acyclovir 200 MG capsule PO SCH (21:05)
[2021-03-24] MEDS: metoprolol succinate 25mg (24-HOUR) SR. Tablet PO SCH (21:05)
[2021-03-24 23:00] VITALS: BP 137/79
--- NOTE | 2021-03-25 06:40 | NUR ---
Problems reprioritized. Patient report given, questions answered & plan of care reviewed with
--- NOTE | 2021-03-25 06:51 | NUR ---
Patient in room COVID 04. I have received report from CHLOE CARDONA and had the opportunity to ask questions and assume patient care.
[2021-03-25 07:03] VITALS: BP 143/67
[2021-03-25] MEDS: budesonide 0.5mg/2ml UD nebule IH SCH ×2 (08:00→20:00)
[2021-03-25 08:04] LABS: BASOPHILS % (AUTO) 0.4 % (0-1); EOSINOPHILS % (AUTO) 0 % (0-6); HEMATOCRIT 37.5 % (42.0-52.0); HEMOGLOBIN 12.6 g/dl (14.0-17.9); LYMPHOCYTES # (AUTO) 0.5 X10'3 (1.1-4.8); LYMPHOCYTES % (AUTO) 5.6 % (21-51); MEAN CORPUSCULAR HEMOGLOBIN 31.9 PG (27.0-31.0); MEAN CORPUSCULAR HGB CONC 33.7 g/dL (33.0-36.5); MEAN CORPUSCULAR VOLUME 94.8 FL (78-98); MEAN PLATELET VOLUME 7.6 FL (7.4-10.4); MONOCYTES # (AUTO) 1.1 X10'3 (0-0.9); MONOCYTES % (AUTO) 11.5 % (2-12); NEUTROPHILS # (AUTO) 7.9 X10'3 (1.8-7.7); NEUTROPHILS % (AUTO) 82.5 % (42-75); PLATELET COUNT 360 X10'3 (140-440); RED BLOOD COUNT 3.95 X10'6 (4.70-6.10); RED CELL DISTRIBUTION WIDTH 15.9 % (11.5-14.5); WHITE BLOOD COUNT 9.6 X10'3 (4.5-11.0)
[2021-03-25] MEDS: REMDESIVIR INJ 100 MG in normal saline 100ml IV soln 80 ML IV SCH (08:05)
[2021-03-25] MEDS: gabapentin 300mg capsule PO SCH ×2 (08:11→20:09)
[2021-03-25] MEDS: furosemide 20MG tablet PO SCH (08:11)
[2021-03-25] MEDS: cholecalciferol (vitamin D3) 1,000 unit (25mcg) tablet PO SCH (08:11)
[2021-03-25] MEDS: tamsulosin 0.4mg capsule PO SCH (08:11)
[2021-03-25] MEDS: potassium chloride 10mEq ER tablet PO SCH (08:11)
[2021-03-25] MEDS: cyanocobalamin 500mcg tablet PO SCH (08:11)
[2021-03-25] MEDS: folic acid 1mg tablet PO SCH (08:11)
[2021-03-25] MEDS: pantoprazole 40mg Tablet.DR PO SCH (08:11)
[2021-03-25] MEDS: methylPREDNISolone sod succ/PF 40mg inj. IV SCH ×3 (08:12→23:41)
[2021-03-25] MEDS: enoxaparin 40mg/0.4ml syringe SUBCUT SCH ×2 (08:12→20:10)
[2021-03-25] MEDS: normal saline 1000ml 1,000 ML IV SCH (08:13)
[2021-03-25 08:15] LABS: ALBUMIN 2.5 G/DL (3.4-5.0); ANION GAP 11 (8-16); BLOOD UREA NITROGEN 21 MG/DL (7-18); BUN/CREATININE RATIO 20.6 (5.4-32.0); CALCIUM 7.4 MG/DL (8.5-10.1); CHLORIDE 105 MMOL/L (99-107); CREATININE 1.02 MG/DL (0.60-1.10); GLUCOSE 147 MG/DL (70-104); POTASSIUM 3.4 MMOL/L (3.5-5.1); SODIUM 141 MMOL/L (135-145); TOTAL CARBON DIOXIDE 24.9 MMOL/L (24-32); eGFR 72 ML/MIN
[2021-03-25 09:20] LABS: TOTAL CELLS COUNTED 100
[2021-03-25 09:21] LABS: PLATELET ESTIMATE NORMAL; TOXIC GRANULATION 1+
[2021-03-25 09:23] LABS: ANISOCYTOSIS FEW
[2021-03-25 09:24] LABS: BURR CELLS 1+
[2021-03-25 12:38] VITALS: BP 142/73
[2021-03-25 13:18] LABS: D-DIMER 0.78 MG/L FEU (0-0.50)
[2021-03-25 15:00] VITALS: BP 137/55
[2021-03-25] MEDS: potassium Cl 20 mEq SR tablet PO PRN ×2 (17:08→21:02)
[2021-03-25 19:00] VITALS: BP 168/85
[2021-03-25] MEDS: atorvastatin 20mg tablet PO SCH (20:08)
[2021-03-25] MEDS: metoprolol succinate 25mg (24-HOUR) SR. Tablet PO SCH (20:09)
[2021-03-25] MEDS: aspirin 81mg, enteric-coated 1 TAB TABLET.DR PO SCH (20:09)
[2021-03-25] MEDS: BARICITINIB 2 MG PO SCH (21:00)
[2021-03-25] MEDS: acyclovir 200 MG capsule PO SCH (21:01)
--- NOTE | 2021-03-25 22:23 | NUR ---
patient continues on high flow salter o2 sats 88-94%. patient can be impulsive and detach himself from Iv and O2 to go to bathroom patient advised that this isnt safe to do this but can be resistant to this advise. Patient agreed to use call light next time. seen by DR Santiago all cares continue. Taught on the use of an IS. will continue to monitor.
[2021-03-25 23:51] VITALS: BP 136/82
--- NOTE | 2021-03-26 00:02 | NUR ---
Problems reprioritized. Patient report given, questions answered & plan of care reviewed with Candace CARDONA.
--- NOTE | 2021-03-26 00:15 | NUR ---
Patient in room COVID 04. I have received report from RUBIO and had the opportunity to ask questions and assume patient care.
[2021-03-26 02:00] VITALS: BP 114/69
--- NOTE | 2021-03-26 06:30 | NUR ---
Patient in room COVID 04. I have received report from BRENDAN PASTOR and had the opportunity to ask questions and assume patient care.
[2021-03-26 06:58] VITALS: BP 134/72
[2021-03-26] MEDS: budesonide 0.5mg/2ml UD nebule IH SCH ×2 (08:00→20:00)
[2021-03-26] MEDS: folic acid 1mg tablet PO SCH (08:49)
[2021-03-26] MEDS: tamsulosin 0.4mg capsule PO SCH (08:50)
[2021-03-26] MEDS: REMDESIVIR INJ 100 MG in normal saline 100ml IV soln 80 ML IV SCH (08:50)
[2021-03-26] MEDS: furosemide 20MG tablet PO SCH (08:50)
[2021-03-26] MEDS: cholecalciferol (vitamin D3) 1,000 unit (25mcg) tablet PO SCH (08:50)
[2021-03-26] MEDS: cyanocobalamin 500mcg tablet PO SCH (08:50)
[2021-03-26] MEDS: potassium chloride 10mEq ER tablet PO SCH (08:50)
[2021-03-26] MEDS: methylPREDNISolone sod succ/PF 40mg inj. IV SCH ×2 (08:50→16:44)
[2021-03-26] MEDS: pantoprazole 40mg Tablet.DR PO SCH (08:50)
[2021-03-26] MEDS: enoxaparin 40mg/0.4ml syringe SUBCUT SCH ×2 (08:53→22:14)
[2021-03-26] MEDS: gabapentin 300mg capsule PO SCH ×2 (08:54→22:13)
[2021-03-26 09:44] LABS: D-DIMER 0.78 MG/L FEU (0-0.50)
[2021-03-26 09:46] LABS: ALBUMIN 2.3 G/DL (3.4-5.0); ANION GAP 9 (8-16); BLOOD UREA NITROGEN 27 MG/DL (7-18); BUN/CREATININE RATIO 20.6 (5.4-32.0); C-REACTIVE PROTEIN 1.07 MG/DL (0.0-0.5); CALCIUM 7.7 MG/DL (8.5-10.1); CHLORIDE 104 MMOL/L (99-107); CREATININE 1.31 MG/DL (0.60-1.10); GLUCOSE 247 MG/DL (70-104); POTASSIUM 3.9 MMOL/L (3.5-5.1); SODIUM 140 MMOL/L (135-145); TOTAL CARBON DIOXIDE 26.6 MMOL/L (24-32); eGFR 54 ML/MIN
[2021-03-26 09:51] LABS: BASOPHILS # (AUTO) 0.1 X10'3 (0-0.2); BASOPHILS % (AUTO) 0.6 % (0-1); EOSINOPHILS % (AUTO) 0.1 % (0-6); HEMATOCRIT 37.3 % (42.0-52.0); HEMOGLOBIN 12.4 g/dl (14.0-17.9); LYMPHOCYTES # (AUTO) 0.8 X10'3 (1.1-4.8); LYMPHOCYTES % (AUTO) 7.8 % (21-51); MEAN CORPUSCULAR HEMOGLOBIN 32.3 PG (27.0-31.0); MEAN CORPUSCULAR HGB CONC 33.3 g/dL (33.0-36.5); MEAN PLATELET VOLUME 7.8 FL (7.4-10.4); MONOCYTES % (AUTO) 9.5 % (2-12); NEUTROPHILS # (AUTO) 8.7 X10'3 (1.8-7.7); PLATELET COUNT 359 X10'3 (140-440); RED BLOOD COUNT 3.84 X10'6 (4.70-6.10); WHITE BLOOD COUNT 10.6 X10'3 (4.5-11.0)
[2021-03-26 11:25] LABS: TOTAL CELLS COUNTED 100
[2021-03-26 11:26] LABS: PLATELET ESTIMATE NORMAL
[2021-03-26 11:28] LABS: BURR CELLS FEW
[2021-03-26 11:29] LABS: ANISOCYTOSIS 1+
[2021-03-26 11:43] VITALS: BP 134/72
--- NOTE | 2021-03-26 12:10 | NUR ---
Initial: Pt admitted w/ flu-like symptoms and Covid dx per EMR. Pt has been eating well, 100% of meals on Regular diet meeting needs. Discussed w/ RN about changing to CCHO diet if MD agreeable given pt's DM hx and A1C of 6.9 and elevated glucose throughout admission. No N/V/D noted, LBM 03/25. Will continue to monitor. Recs: 1. Add CCHO diet if MD agreeable 2. Bowel care per rx 3. Scaled wt this admit, weekly wt thereafter Addendum: 03/26/21 at [address] Amended: Links added.
[2021-03-26 14:00] VITALS: BP 138/81
--- NOTE | 2021-03-26 19:18 | NUR ---
Problems reprioritized. Patient report given, questions answered & plan of care reviewed with BRENDAN Menjivar.
[2021-03-26 20:00] VITALS: BP 135/71
[2021-03-26] MEDS: BARICITINIB 2 MG PO SCH (21:00)
[2021-03-26 22:00] VITALS: BP 107/61
[2021-03-26] MEDS: metoprolol succinate 25mg (24-HOUR) SR. Tablet PO SCH (22:10)
[2021-03-26] MEDS: acyclovir 200 MG capsule PO SCH (22:10)
[2021-03-26] MEDS: aspirin 81mg, enteric-coated 1 TAB TABLET.DR PO SCH (22:12)
[2021-03-26] MEDS: atorvastatin 20mg tablet PO SCH (22:13)
[2021-03-27] MEDS: methylPREDNISolone sod succ/PF 40mg inj. IV SCH ×3 (01:03→19:38)
[2021-03-27 02:00] VITALS: BP 138/69
[2021-03-27 06:00] VITALS: BP 98/55
--- NOTE | 2021-03-27 06:50 | NUR ---
Patient in room ORTHO 4024. I have received report from BRENDAN Menjivar and had the opportunity to ask questions and assume patient care.
[2021-03-27 07:42] LABS: BASOPHILS % (AUTO) 0 % (0-1); EOSINOPHILS % (AUTO) 0 % (0-6); HEMATOCRIT 37.7 % (42.0-52.0); HEMOGLOBIN 12.7 g/dl (14.0-17.9); LYMPHOCYTES # (AUTO) 0.9 X10'3 (1.1-4.8); LYMPHOCYTES % (AUTO) 7.1 % (21-51); MEAN CORPUSCULAR HEMOGLOBIN 31.9 PG (27.0-31.0); MEAN CORPUSCULAR HGB CONC 33.6 g/dL (33.0-36.5); MEAN PLATELET VOLUME 7.4 FL (7.4-10.4); MONOCYTES # (AUTO) 1.3 X10'3 (0-0.9); MONOCYTES % (AUTO) 10.2 % (2-12); NEUTROPHILS # (AUTO) 10.9 X10'3 (1.8-7.7); NEUTROPHILS % (AUTO) 82.7 % (42-75); PLATELET COUNT 383 X10'3 (140-440); RED BLOOD COUNT 3.97 X10'6 (4.70-6.10); RED CELL DISTRIBUTION WIDTH 16.3 % (11.5-14.5); WHITE BLOOD COUNT 13.2 X10'3 (4.5-11.0)
[2021-03-27 08:30] LABS: D-DIMER 0.68 MG/L FEU (0-0.50)
[2021-03-27 08:46] LABS: ALBUMIN 2.5 G/DL (3.4-5.0); ANION GAP 7 (8-16); BLOOD UREA NITROGEN 30 MG/DL (7-18); C-REACTIVE PROTEIN 0.69 MG/DL (0.0-0.5); CALCIUM 7.8 MG/DL (8.5-10.1); CHLORIDE 105 MMOL/L (99-107); CREATININE 1.07 MG/DL (0.60-1.10); GLUCOSE 170 MG/DL (70-104); POTASSIUM 4.1 MMOL/L (3.5-5.1); SODIUM 140 MMOL/L (135-145); TOTAL CARBON DIOXIDE 27.7 MMOL/L (24-32); eGFR 69 ML/MIN
[2021-03-27 10:00] VITALS: BP 116/60
[2021-03-27] MEDS: cholecalciferol (vitamin D3) 1,000 unit (25mcg) tablet PO SCH (10:16)
[2021-03-27] MEDS: potassium chloride 10mEq ER tablet PO SCH (10:16)
[2021-03-27] MEDS: tamsulosin 0.4mg capsule PO SCH (10:16)
[2021-03-27] MEDS: enoxaparin 40mg/0.4ml syringe SUBCUT SCH ×2 (10:16→19:40)
[2021-03-27] MEDS: pantoprazole 40mg Tablet.DR PO SCH (10:17)
[2021-03-27] MEDS: folic acid 1mg tablet PO SCH (10:17)
[2021-03-27] MEDS: gabapentin 300mg capsule PO SCH ×2 (10:17→19:39)
[2021-03-27] MEDS: cyanocobalamin 500mcg tablet PO SCH (10:17)
[2021-03-27 14:00] VITALS: BP 113/58
--- NOTE | 2021-03-27 15:08 | NUR ---
Page Sent PAGER ID: [phone] MESSAGE: [id number] Regarding [id number] Carrie Orellana- Please call regarding pt medication. Thanks!
--- NOTE | 2021-03-27 16:23 | NUR ---
Page Sent PAGER ID: [phone] MESSAGE: [id number] SECOND PAGE Regarding [id number] Carrie Orellana- medication route change needed. Please Call.
[2021-03-27 18:15] LABS: ANISOCYTOSIS 1+; ELLIPTOCYTES FEW; PLATELET ESTIMATE NORMAL; TOTAL CELLS COUNTED 100
--- NOTE | 2021-03-27 18:29 | NUR ---
Problems reprioritized. Patient report given,Isabel & BRENDAN Pierre questions answered & plan of care reviewed with .
[2021-03-27 18:30] VITALS: BP 178/7
[2021-03-27] MEDS: BUDESONIDE 180 MCG AER.POW.BA INH SCH (19:39)
[2021-03-27] MEDS: acyclovir 200 MG capsule PO SCH (19:39)
[2021-03-27] MEDS: metoprolol succinate 25mg (24-HOUR) SR. Tablet PO SCH (19:39)
[2021-03-27] MEDS: aspirin 81mg, enteric-coated 1 TAB TABLET.DR PO SCH (19:40)
[2021-03-27] MEDS: atorvastatin 20mg tablet PO SCH (19:41)
[2021-03-27] MEDS: BARICITINIB 2 MG PO SCH (21:00)
[2021-03-27 22:00] VITALS: BP 126/70
--- NOTE | 2021-03-27 23:00 | NUR ---
will start on diabetic protocol with elevated glucose levels. Dr. Wong ordered protocol. pt using cpap with 5L when he sleeps. will see if he will titrate down later today if sats continue to be stable on cpap
[2021-03-27] MEDS ORDERED: MESSAGE TO PHARMACY PO ONE (23:20)
[2021-03-27] MEDS ORDERED: glucagon, human recombinant 1mg kit SUBCUT PRN (23:20)
[2021-03-27] MEDS ORDERED: dextrose ORAL solution 15 GM/59 ML bottle PO PRN ×2 (23:20)
[2021-03-27] MEDS ORDERED: dextrose 50%-water 50ml dispensing syringe IV PRN ×2 (23:20)
[2021-03-28] MEDS: insulin glargine (Lantus) pen - multi-dose SQ SCH ×2 (00:26→22:46)
[2021-03-28 01:03] LABS: UA COLLECTION TYPE VOIDED
[2021-03-28 01:04] LABS: CLARITY,URINE CLEAR (Clear); COLOR,URINE YELLOW (Yellow); GLUCOSE, URINE NEGATIVE (Neg); KETONES,URINE NEGATIVE (Neg); LEUKOCYTE ESTERASE ,URINE NEGATIVE (Neg); NITRITES, URINE NEGATIVE (Neg); OCCULT BLOOD,URINE NEGATIVE (Neg); PROTEIN,URINE NEGATIVE (Neg); UROBILINOGEN,URINE 0.2 E.U/dL (0.2-1.0)
[2021-03-28 01:29] VITALS: BP 114/66
[2021-03-28 06:00] VITALS: BP 119/74
--- NOTE | 2021-03-28 06:36 | NUR ---
Problems reprioritized. Patient report given, questions answered & plan of care reviewed with BRENDAN Madrigal..
[2021-03-28 08:48] LABS: D-DIMER 0.63 MG/L FEU (0-0.50)
[2021-03-28] MEDS: cholecalciferol (vitamin D3) 1,000 unit (25mcg) tablet PO SCH (08:56)
[2021-03-28] MEDS: enoxaparin 40mg/0.4ml syringe SUBCUT SCH ×2 (08:56→22:42)
[2021-03-28] MEDS: cyanocobalamin 500mcg tablet PO SCH (08:57)
[2021-03-28] MEDS: tamsulosin 0.4mg capsule PO SCH (08:57)
[2021-03-28] MEDS: potassium chloride 10mEq ER tablet PO SCH (08:59)
[2021-03-28] MEDS: pantoprazole 40mg Tablet.DR PO SCH (09:00)
[2021-03-28] MEDS: gabapentin 300mg capsule PO SCH ×2 (09:00→22:41)
[2021-03-28] MEDS: methylPREDNISolone sod succ/PF 40mg inj. IV SCH ×2 (09:00→22:41)
[2021-03-28] MEDS: folic acid 1mg tablet PO SCH (09:00)
[2021-03-28] MEDS: BUDESONIDE 180 MCG AER.POW.BA INH SCH ×2 (09:10→20:00)
[2021-03-28] MEDS: insulin Lispro (HumaLOG) vial - multi-dose SQ SCH ×3 (09:18→19:09)
[2021-03-28 10:30] VITALS: BP 116/69
[2021-03-28 14:00] VITALS: BP 122/67
--- NOTE | 2021-03-28 14:59 | NUR ---
DM consult: Pt with A1c 6.9%, DM education not warranted at this time. Will continue to follow. Addendum: 03/28/21 at [address] Amended: Links added.
[2021-03-28 18:00] VITALS: BP 122/67
--- NOTE | 2021-03-28 18:03 | NUR ---
Pt has been stable and is able to make his needs known. He continues on 5L HF. He has repositioned himself throughout shift. Will continue to monitor until report given to NOC shift and NOC shift assumes care.
--- NOTE | 2021-03-28 18:30 | NUR ---
Patient in room ORTHO 4024. I have received report from Archana CARDONA and had the opportunity to ask questions and assume patient care.
--- NOTE | 2021-03-28 18:37 | NUR ---
Problems reprioritized. Patient report given, questions answered & plan of care reviewed with BRENDAN England.
[2021-03-28] MEDS: BARICITINIB 2 MG PO SCH (21:00)
--- NOTE | 2021-03-28 21:00 | NUR ---
Patient in room ORTHO 4024. I have received report from Samanta CARDONA and had the opportunity to ask questions and assume patient care.
--- NOTE | 2021-03-28 21:01 | NUR ---
Problems reprioritized. Patient report given, questions answered & plan of care reviewed with Camilla CARDONA.
[2021-03-28 22:00] VITALS: BP 106/53
[2021-03-28] MEDS: aspirin 81mg, enteric-coated 1 TAB TABLET.DR PO SCH (22:41)
[2021-03-28] MEDS: atorvastatin 20mg tablet PO SCH (22:42)
[2021-03-28] MEDS: acyclovir 200 MG capsule PO SCH (22:42)
[2021-03-28] MEDS: metoprolol succinate 25mg (24-HOUR) SR. Tablet PO SCH (22:42)
[2021-03-29 02:00] VITALS: BP 99/41
[2021-03-29 07:02] VITALS: BP 97/47
[2021-03-29] MEDS: BUDESONIDE 180 MCG AER.POW.BA INH SCH (07:36)
[2021-03-29] MEDS: insulin Lispro (HumaLOG) vial - multi-dose SQ SCH (08:15)
[2021-03-29] MEDS: gabapentin 300mg capsule PO SCH (08:17)
[2021-03-29] MEDS: potassium chloride 10mEq ER tablet PO SCH (08:17)
[2021-03-29] MEDS: cholecalciferol (vitamin D3) 1,000 unit (25mcg) tablet PO SCH (08:17)
[2021-03-29] MEDS: pantoprazole 40mg Tablet.DR PO SCH (08:17)
[2021-03-29] MEDS: cyanocobalamin 500mcg tablet PO SCH (08:18)
[2021-03-29] MEDS: folic acid 1mg tablet PO SCH (08:18)
[2021-03-29] MEDS: tamsulosin 0.4mg capsule PO SCH (08:18)
[2021-03-29] MEDS: methylPREDNISolone sod succ/PF 40mg inj. IV SCH (08:19)
[2021-03-29] MEDS: enoxaparin 40mg/0.4ml syringe SUBCUT SCH (08:19)
[2021-03-29 10:00] VITALS: BP 122/69
[2021-03-29 10:13] LABS: D-DIMER 0.64 MG/L FEU (0-0.50)
[2021-03-29] MEDS ORDERED: DEC4T PO (12:53)
[2021-03-29 14:00] VITALS: BP 128/66
[2021-03-29] MEDS ORDERED: PRED10TA23 PO (14:24)
[2021-03-29] MEDS ORDERED: PRED10TA PO (14:32)
--- NOTE | 2021-03-29 14:56 | NUR ---
O2 Sat at rest on room air:_96% If below 89%: Recovery O2 Sat at rest on ___LPM:___%:___% via (mask/nasal cannula, etc..) No further documentation is necessary. If O2 Sat did not drop below 89% on room air,ambulate patient on room air. O2 Sat while ambulating on room air:87% Recovery O2 Sat while ambulating on 3 LPM:_94% No further documentation is necessary. If patient does not drop below 89% while ambulating, he/she does not qualify for home O2.
--- NOTE | 2021-03-29 16:45 | NUR ---
pt discharged home with . Pt initially didnt qualify for home 02 but later dropped to 87% on ra. home 02 ordered. [facility]cription [facility] and picked up for pt before picking up pt. iv taken out, heart monitor dc'd. all belongings taken from room. pt appropriate for discharge.
== END 2021-03-29 16:45 | disposition home or self-care (01) | DRG 177 ==
LOC: ER 15:19 → ED HOLD 20:39 → COVID IP 21:50 → ORTHO 4S 03-26 19:56
PROVIDERS: ADMIT Internal Medicine; ATTEND Internal Medicine
PROC: XW033E5 Introduction of Remdesivir Anti-infective into Peripheral Vein, Percutaneous Approach, New Technology Group 5 (ICD-10-PCS; principal; 2021-03-22)
PROC: 5A09357 Assistance with Respiratory Ventilation, Less than 24 Consecutive Hours, Continuous Positive Airway Pressure (ICD-10-PCS; 2021-03-24)
PROC: 5A0945A Assistance with Respiratory Ventilation, 24-96 Consecutive Hours, High Flow/Velocity Cannula (ICD-10-PCS; 2021-03-25)
PROC: 5A09357 Assistance with Respiratory Ventilation, Less than 24 Consecutive Hours, Continuous Positive Airway Pressure (ICD-10-PCS; 2021-03-27)
PROC: 5A0935A Assistance with Respiratory Ventilation, Less than 24 Consecutive Hours, High Flow/Velocity Cannula (ICD-10-PCS; 2021-03-28)
PROC: 5A09357 Assistance with Respiratory Ventilation, Less than 24 Consecutive Hours, Continuous Positive Airway Pressure (ICD-10-PCS; 2021-03-28)
PROC: 5A0935A Assistance with Respiratory Ventilation, Less than 24 Consecutive Hours, High Flow/Velocity Cannula (ICD-10-PCS; 2021-03-29)
DX: U07.1 COVID-19 (principal); J12.82 Pneumonia due to coronavirus disease 2019; J96.01 Acute respiratory failure with hypoxia; D84.9 Immunodeficiency, unspecified; E11.9 Type 2 diabetes mellitus without complications; M06.9 Rheumatoid arthritis, unspecified; I10 Essential (primary) hypertension; E78.5 Hyperlipidemia, unspecified; E66.9 Obesity, unspecified; E78.00 Pure hypercholesterolemia, unspecified; G47.33 Obstructive sleep apnea (adult) (pediatric); D64.9 Anemia, unspecified; G89.29 Other chronic pain; K21.9 Gastro-esophageal reflux disease without esophagitis; K52.9 Noninfective gastroenteritis and colitis, unspecified; N40.0 Benign prostatic hyperplasia without lower urinary tract symptoms; Z96.653 Presence of artificial knee joint, bilateral; Z68.29 Body mass index [BMI] 29.0-29.9, adult; Z88.8 Allergy status to other drugs, medicaments and biological substances; Z79.82 Long term (current) use of aspirin; Z79.899 Other long term (current) drug therapy
CPT/HCPCS: 36415; 71045; 80048; 80053; 81003; 82948; 83036; 83605; 83615; 83735; 84145; 85007; 85025; 85379; 86140; 87040; 87081; 87635; 93005; 94760; 96374; 96375; 99285; C9803; G0378; J1650; J1815; J2920; J2930; J7030; J7626